=== PATIENT | female | born 1955 | race Caucasian/White ===

== ENCOUNTER 2018-03-28 14:19 | Emergency (ER) | payer MEDICARE, MEDICAID ==
--- NOTE | 2018-03-28 14:46 | ED ---
HPI Cardiac - HPI Summary HPI Summary: This patient is a 65 year old F sent by ambulance from [facility] with a chief complaint of elevated HR since just OUTSIDE RIGGER. Patient reports chills. The patient states that her doctor was supposed to increase her dosage of thyroid medication and she is concerned about that. Vitals in the room: HR 115 bpm, BP 150/82. - History of Current Complaint Chief Complaint: EDGeneral Stated Complaint: GENERAL ILLNESS Time Seen by Provider: 03/28/18 14:29 Hx Obtained From: Patient, Other: - [facility] Pain Intensity: 0 Associated Signs and Symptoms: Positive: Chills - Allergy/Home Medications Allergies/Adverse Reactions: Allergies Allergy/AdvReac Type Severity Reaction Status Date / Time insect venom Allergy Anaphylatic Verified 03/28/18 14:28 Shock Home Medications: Home Medications EPINEPHrine [Epinephrine] 0.3 mg IM DAILY PRN 03/28/18 [History Confirmed ] PMH/Surg Hx/FS Hx/Imm Hx History: Denies: Hx Dialysis Sensory History: Denies: Hx Deafness Psychiatric History: Denies: Hx Eating Disorder, Hx of Violent Episodes Against Others Infectious Disease History: No Infectious Disease History: Denies: Traveled Outside the US in Last 30 Days - Family History Known Family History: Positive: Other - thyroid - Social History Alcohol Use: None Substance Use Type: Reports: None Smoking Status (MU): Never Smoked Tobacco Review of Systems Positive: Chills Positive: Other - increased HR All Other Systems Reviewed And Are Negative: Yes Physical Exam - Summary Physical Exam Summary: Appearance: The patient is well-nourished in no acute distress and in no acute pain. Skin: The skin is warm and dry and skin color reflects adequate perfusion. HEENT: The head is normocephalic and atraumatic. The pupils are equal and reactive. The conjunctivae are clear and without drainage. Nares are patent and without drainage. Mouth reveals moist mucous membranes and the throat is without erythema and exudate. The external ears are intact. The ear canals are patent and without drainage. The tympanic membranes are intact. Neck: The neck is supple with full range of motion and non-tender. There are no carotid bruits. There is no neck vein distension. Respiratory: Chest is non-tender. Lungs are clear to auscultation and breath sounds are symmetrical and equal. Cardiovascular: Heart is regular rate and rhythm. There is no murmur or rub auscultated. There is no peripheral edema and pulses are symmetrical and equal. Abdomen: The abdomen is soft and non-tender. There are normal bowel sounds heard in all four quadrants and there is no organomegaly palpated. Musculoskeletal: There is no back tenderness noted. Extremities are non-tender with full range of motion. There is good capillary refill. There is no peripheral edema or calf tenderness elicited. There is hyperreflexia diffusely. Neurological: Patient is alert and oriented to person, place and time. The patient has symmetrical motor strength in all four extremities. Cranial nerves are grossly intact. Deep tendon reflexes are symmetrical and equal in all four extremities. Psychiatric: The patient has an appropriate affect and does not exhibit any anxiety or depression. Triage Information Reviewed: Yes Vital Signs On Initial Exam: Initial Vitals Temp Pulse Resp BP Pulse Ox 98 F 115 18 150/82 93 03/28/18 14:25 03/28/18 14:25 03/28/18 14:25 03/28/18 14:25 03/28/18 14:25 Vital Signs Reviewed: Yes Diagnostics - Vital Signs Vital Signs Temp Pulse Resp BP Pulse Ox 03/28/18 14:25 98 F 115 18 150/82 93 - Laboratory Result Diagrams: 03/28/18 14:55 03/28/18 14:55 Lab Statement: Any lab studies that have been ordered have been reviewed, and results considered in the medical decision making process. Disposition - Course Course Of Treatment: Ms. Miranda presented to the emergency department from the [facility]. She went there for a routine visit and was found to be tachycardic. She is on thyroid medication and they were concerned. She is asymptomatic. She is nontoxic and arrival with normal vital signs aside from mild tachycardia. The tachycardia is treated with IV fluids while labs are obtained including a TSH and a d-dimer. These tests are all within normal limits and her tachycardia improved with fluids. I don't think anything dangerous is happening and I recommended she follow up with her PCP. - Diagnoses Provider Diagnoses: Dehydration Discharge - Sign-Out/Discharge Documenting (check all that apply): Patient Departure - discharge - Discharge Plan Condition: Stable Disposition: HOME Patient Education Materials: Dehydration (ED) Referrals: Hayley Pierce MD [Primary Care Provider] - 3 Days Additional Instructions: Follow up with Dr. Pierce in 2-3 days. RETURN TO THE EMERGENCY DEPARTMENT WITH NEW OR WORSENING SYMPTOMS. - Billing Disposition and Condition Condition: STABLE Disposition: Home - Attestation Statements Document Initiated by Toy: Yes Documenting Scribe: Sony Shukla Provider For Whom Lolie is Documenting (Include Credential): Edy Chavarria Scribe Attestation: ISony, scribed for Edy Chavarria on 03/28/18 at 1825. Scribe Documentation Reviewed: Yes Provider Attestation: The documentation as recorded by the Sony márquez accurately reflects the service I personally performed and the decisions made by Edy wan Status of Scribe Document: Viewed
[2018-03-28 15:05] LABS: ABS Basophils 0 10^3/ul (0-0.2); ABS Eosinophils 0 10^3/ul (0-0.6); ABS Lymphocytes 0.9 10^3/ul (1.0-4.8); ABS Monocytes 0.4 10^3/ul (0-0.8); ABS Neutrophils 4.9 10^3/ul (1.5-7.7); ABS Nucleated RBC 0 10^3/ul; Eosinophil % 0.1 %; Hematocrit 42 % (35-47); Hemoglobin 14.1 g/dl (12.0-16.0); Lymphocyte % 14.8 %; Mean Corpuscular HGB Conc 34 g/dl (31-36); Mean Corpuscular Hemoglobin 29 pg (27-31); Mean Corpuscular Volume 85 fL (80-97); Mean Platelet Volume 8.7 fL (7.4-10.4); Nucleated Red Blood Cells % 0; Platelet Count 214 10^3/ul (150-450); Red Blood Count 4.89 10^6/ul (4.00-5.40); Red Cell Distribution Width 15 % (10.5-15); White Blood Count 6.2 10^3/ul (3.5-10.8)
[2018-03-28 15:24] LABS: Albumin 3.7 g/dL (3.2-5.2); Albumin/Globulin Ratio 1.2 (1-3); BUN/Creatinine Ratio 24.3 (8-20); C Reactive Protein 6.36 mg/L (<8.01); Calcium 9.7 mg/dL (8.6-10.3); EGFR African American 96.2 (>60); EGFR Non-African American 79.5 (>60); Globulin 3.1 g/dL (2-4); Potassium 3.2 mmol/L (3.5-5.0); Total Bilirubin 0.5 mg/dL (0.2-1.0); Total Protein 6.8 g/dL (6.4-8.9)
[2018-03-28 16:05] LABS: TSH (Thyroid Stimulating Horm) 1.5 mcIU/mL (0.34-5.60)
[2018-03-28] MEDS ORDERED: NS 0.9% 1000 ML** 1,000 ML IV ONE (16:30)
[2018-03-28 17:37] VITALS: BP 144/81
== END 2018-03-28 18:02 | disposition home or self-care (01) ==
LOC: ED 14:19
DX: E86.0 Dehydration (principal); R00.0 Tachycardia, unspecified
CPT/HCPCS: 36415; 80053; 84443; 84484; 85025; 85379; 86140; 96360; 99283

== ENCOUNTER 2018-04-09 10:24 | Emergency (ER) | payer MEDICARE, MEDICAID ==
[2018-04-09] MEDS ORDERED: Nicotine Inhaler* 10 MG AMP INH PRN (10:40)
[2018-04-09 11:09] LABS: ABS Basophils 0.1 10^3/ul (0-0.2); ABS Eosinophils 0 10^3/ul (0-0.6); ABS Monocytes 0.5 10^3/ul (0-0.8); ABS Neutrophils 4.6 10^3/ul (1.5-7.7); ABS Nucleated RBC 0 10^3/ul; Eosinophil % 0.6 %; Hematocrit 46 % (35-47); Hemoglobin 15.3 g/dl (12.0-16.0); Lymphocyte % 16.6 %; Mean Corpuscular HGB Conc 33 g/dl (31-36); Mean Corpuscular Hemoglobin 29 pg (27-31); Mean Corpuscular Volume 87 fL (80-97); Mean Platelet Volume 8.9 fL (7.4-10.4); Nucleated Red Blood Cells % 0.1; Platelet Count 210 10^3/ul (150-450); Red Cell Distribution Width 15 % (10.5-15); White Blood Count 6.3 10^3/ul (3.5-10.8)
[2018-04-09 11:11] LABS: Urine Appearance Cloudy; Urine Bacteria Absent (Absent); Urine Bilirubin Negative (Negative); Urine Blood Negative (Negative); Urine Color Amber; Urine Glucose Negative (Negative); Urine Ketones 1+ (Negative); Urine Nitrite Negative (Negative); Urine Protein Negative (Negative); Urine Red Blood Cell Absent (Absent); Urine Specific Gravity 1.027 (1.010-1.030); Urine Squamous Epithelial Cell Present (Absent); Urine Urobilinogen Negative (Negative); Urine White Blood Cell 3+(>20/hpf) (Absent)
--- NOTE | 2018-04-09 11:25 | ED ---
Psychiatric Complaint - HPI Summary HPI Summary: A 62 y/o female presents to [facility] with a chief complaint of being brought in for a 945 the morning of 04/09/18. Per triage note, "brother is hounding her, [facility] sent pt: pt having nightmares "bad ones" wont elaborate". She claims that she has been having nightmares and wakes up being "frozen". She denies having nightmares during the day. She also claims that she gets angry when her brother and telemarketers call but she denies HI. She claims that they "get all on my case" and that "there is a boundary that they keep crossing". She claims that her only comfort is her cat and she is starting not to like the [place] weather and her "cat knows that something is not right" with her , but she denies SI. She also reports that she has genital herpes but is not taking any medicine for it. She denies fever, chills, erythema (eyes), sore throat, chest pain, shortness of breath, cough, abdominal pain, vomiting, nausea, dysuria, hematuria, myalgia , edema, rash and dizziness. Her therapist, Yaquelin, recommended that she come to the ED. At triage she rated her pain as a 0/10. - History Of Current Complaint Chief Complaint: EDMentalHealth Time Seen by Provider: 04/09/18 10:39 Hx Obtained From: Patient, EMS Onset/Duration: Sudden Onset, Lasting Hours, Lasting Days, Still Present Timing: Constant Severity Initially: Mild Severity Currently: Mild Character: Angry Aggravating Factor(s): Nothing Alleviating Factor(s): Nothing Associated Signs And Symptoms: Positive: Sleep Disturbance Has Suicidal: Denies: Thoughts Has Homicidal: Denies: Thoughts - Allergies/Home Medications Allergies/Adverse Reactions: Allergies Allergy/AdvReac Type Severity Reaction Status Date / Time insect venom Allergy Anaphylatic Verified 03/28/18 14:28 Shock Home Medications: Home Medications Dimas/D3/Mag11/Zinc/Child Daycare Worker/Krishna/Bor [Caltrate 600+D Plus] 1 tab PO DAILY 04/09/18 [ History Confirmed 04/09/18] Levothyroxine TAB* [Synthroid TAB*] 50 mcg PO QAM 04/09/18 [History Confirmed ] Magnesium Oxide TAB* [MagOx 400 TAB*] 400 mg PO DAILY 04/09/18 [History Confirmed 04/09/18] Multivitamins/Minerals TAB* [Theragran/minerals TAB*] 1 tab PO DAILY 04/09/18 [ History Confirmed 04/09/18] Potassium Chlor TAB* [Klor Con ER TAB*] 20 meq PO DAILY 04/09/18 [History Confirmed 04/09/18] QUEtiapine XR TAB* [Seroquel Xr 50 MG TAB*] 150 mg PO BEDTIME 04/09/18 [History Confirmed 04/09/18] PMH/Surg Hx/FS Hx/Imm Hx History: Denies: Hx Dialysis Sensory History: Denies: Hx Deafness Psychiatric History: Denies: Hx Eating Disorder, Hx of Violent Episodes Against Others Infectious Disease History: No Infectious Disease History: Denies: Traveled Outside the US in Last 30 Days - Family History Known Family History: Positive: Other - thyroid - Social History Alcohol Use: None Substance Use Type: Reports: None Smoking Status (MU): Never Smoked Tobacco Review of Systems Negative: Fever, Chills Negative: Erythema Negative: Sore Throat Negative: Chest Pain Negative: Shortness Of Breath, Cough Negative: Abdominal Pain, Vomiting, Nausea Negative: dysuria, hematuria Negative: Myalgia, Edema Negative: Rash Neurological: Negative - dizziness Psychological: Other - Negative: HI, SI Positive: Other - positive: angry, nightmares All Other Systems Reviewed And Are Negative: Yes Physical Exam - Summary Physical Exam Summary: Constitutional: Poorly kempt, malodorous. Well-developed, Well-nourished, Alert. (-) Distressed Skin: Warm, Dry HENT: Normocephalic; Atraumatic Eyes: Conjunctiva normal Neck: Musculoskeletal ROM normal neck. (-) JVD, (-) Stridor, (-) Tracheal deviation Cardio: Rhythm regular, rate normal, Heart sounds normal; Intact distal pulses; The pedal pulses are 2+ and symmetric. Radial pulses are 2+ and symmetric. (-) Murmur Pulmonary/Chest wall: Effort normal. (-) Respiratory distress, (-) Wheezes, (-) Rales Abd: Soft, (-) epigastric tenderness, (-) Distension, (-) Guarding, (-) Rebound Musculoskeletal: (-) Edema Lymph: (-) Cervical adenopathy Neuro: Alert, Oriented x3 Psych: Mood and affect Normal Triage Information Reviewed: Yes Vital Signs On Initial Exam: Initial Vitals Temp Pulse Resp BP Pulse Ox 97.6 F 103 16 129/83 93 04/09/18 10:33 04/09/18 10:33 04/09/18 10:33 04/09/18 10:33 04/09/18 10:33 Vital Signs Reviewed: Yes Diagnostics - Vital Signs Vital Signs Temp Pulse Resp BP Pulse Ox 04/09/18 10:33 97.6 F 103 16 129/83 93 - Laboratory Lab Results: Lab Results 04/09/18 04/09/18 Range/Units 10:48 10:49 WBC 6.3 (3.5-10.8) 10^3/ul RBC 5.30 (4.00-5.40) 10^6/ul Hgb 15.3 (12.0-16.0) g/dl Hct 46 (35-47) % MCV 87 (80-97) fL MCH 29 (27-31) pg MCHC 33 (31-36) g/dl RDW 15 (10.5-15) % Plt Count 210 (150-450) 10^3/ul MPV 8.9 (7.4-10.4) fL Neut % (Auto) 73.1 % Lymph % (Auto) 16.6 % Johnson % (Auto) 8.4 % Eos % (Auto) 0.6 % Baso % (Auto) 1.3 % Absolute Neuts (auto) 4.6 (1.5-7.7) 10^3/ul Absolute Lymphs (auto) 1.0 (1.0-4.8) 10^3/ul Absolute Monos (auto) 0.5 (0-0.8) 10^3/ul Absolute Eos (auto) 0 (0-0.6) 10^3/ul Absolute Basos (auto) 0.1 (0-0.2) 10^3/ul Absolute Nucleated RBC 0 10^3/ul Nucleated RBC % 0.1 Urine Color Precious Urine Appearance Cloudy Urine pH 5.0 (5-9) Ur Specific [place] 1.027 (1.010-1.030) Urine Protein Negative (Negative) Urine Ketones 1+ A (Negative) Urine Blood Negative (Negative) Urine Nitrate Negative (Negative) Urine Bilirubin Negative (Negative) Urine Urobilinogen Negative (Negative) Ur Leukocyte Esterase 3+ A (Negative) Urine WBC (Auto) 3+(>20/hpf) A (Absent) Urine RBC (Auto) Absent (Absent) Ur Squamous Epith Cells Present A (Absent) Urine Bacteria Absent (Absent) Urine Glucose Negative (Negative) Urine Ascorbic Acid * A (Negative) Result Diagrams: 04/09/18 10:48 04/09/18 10:51 Lab Statement: Any lab studies that have been ordered have been reviewed, and results considered in the medical decision making process. - EKG 10:53 Cardiac Rate: Tachycardia - 100 bpm EKG Rhythm: Sinus Tachycardia Summary of EKG Findings: Sinus tachycardia at 100 bpm. No STEMI. Re-Evaluation - Re-Evaluation First Eval Re-Evaluation Time: 12:48 Change: Unchanged Comment: cleared for MHE. Course/Dx - Course Course Of Treatment: A 62 y/o female presents to [facility] with a chief complaint of being brought in for a 945 the morning of 04/09/18. She reports having nightmares and being angry with her brother and telemarketers. The physical exam revealed that the patient is poorly kempt and malodorous. She reports a personal Hx of genital herpes and is having a flare up. In the ED course she was given Nicotine INH, Bactrim PO and Valtrex PO. Lab results obtained. Urine ketones 1+, UR leukocyte Esterase 3+, Urine WBC 3+, Ur squamos epith cells present and U Benzodiazepines presumptive positive. Her EKG revealed sinus tachycardia at 100 bpm. After her MHE, she will be discharged with a prescription for Valtrex. She was instructed to follow up with [facility]. The patient is agreeable with this plan. - Differential Dx/Clinical Impression Provider Diagnosis: Depression, Genital herpes Discharge - Sign-Out/Discharge Documenting (check all that apply): Patient Departure - DC - Discharge Plan Condition: Stable Disposition: HOME Prescriptions: ValACYclovir (*) [Valtrex 1 GM(*)] 1 gm PO BID #28 tab Referrals: [facility] [Outside] - 04/14/18 1:30 pm (Follow up appointment with counselor, Holly.) Hayley Pierce MD [Primary Care Provider] - Additional Instructions: Follow up with [facility]. RETURN TO THE EMERGENCY DEPARTMENT FOR CHANGING OR WORSENING SYMPTOMS - Billing Disposition and Condition Condition: STABLE Disposition: Home - Attestation Statements Document Initiated by Adaibe: Yes Documenting Scribe: Zak Doyle Provider For Whom Toy is Documenting (Include Credential): Ian Sneed MD Scribe Attestation: IZak, scribed for Ian Sneed MD on 04/09/18 at 2047. Scribe Documentation Reviewed: Yes Provider Attestation: The documentation as recorded by the Zak márquez accurately reflects the service I personally performed and the decisions made by me, Ian Sneed MD Status of Scribe Document: Viewed
[2018-04-09 11:26] LABS: Barbiturates Urine Screen None Detected (None Detect); Benzodiazepine Urine Screen Presumptive Positive (None Detect); Urine Cannabinoids Screen None Detected (None Detect)
[2018-04-09 11:28] LABS: ALT 16 U/L (7-52); AST 26 U/L (13-39); Albumin 4.1 g/dL (3.2-5.2); Albumin/Globulin Ratio 1.2 (1-3); Alkaline Phosphatase 59 U/L (34-104); Anion Gap 11 mmol/L (2-11); BUN/Creatinine Ratio 29.6 (8-20); Blood Urea Nitrogen 21 mg/dL (6-24); CO2 Carbon Dioxide 24 mmol/L (22-32); Calcium 9.8 mg/dL (8.6-10.3); Chloride 103 mmol/L (101-111); EGFR African American 100.9 (>60); EGFR Non-African American 83.4 (>60); Globulin 3.4 g/dL (2-4); Glucose 101 mg/dL (70-100); Sodium 138 mmol/L (135-145); Total Protein 7.5 g/dL (6.4-8.9)
[2018-04-09 11:42] LABS: Acetaminophen < 15 mcg/mL; Alcohol < 10 mg/dL (<10); Salicylate < 2.50 mg/dL (<30)
[2018-04-09 11:55] LABS: TSH (Thyroid Stimulating Horm) 2.85 mcIU/mL (0.34-5.60)
[2018-04-09] MEDS ORDERED: Sulfamethox/Trimethoprim DS 800/160* TAB PO ONE (12:47)
[2018-04-09] MEDS ORDERED: ValACYclovir (*) 1 GM TAB PO ONE (14:06)
[2018-04-09 15:42] VITALS: BP 114/76
== END 2018-04-09 15:41 | disposition home or self-care (01) ==
LOC: ED 10:24
DX: F32.9 Major depressive disorder, single episode, unspecified (principal); A60.00 Herpesviral infection of urogenital system, unspecified; R00.0 Tachycardia, unspecified
CPT/HCPCS: 36415; 80053; 80307; 80320; 80329; 81003; 81015; 84443; 85025; 86703; 87077; 87086; 87186; 93005; 99284; A9270-GY; G0480

== ENCOUNTER 2018-07-14 20:35 | Emergency (ER) | payer MEDICARE, MEDICAID ==
[2018-07-14 21:25] LABS: Urine Appearance Cloudy; Urine Bacteria Absent (Absent); Urine Bilirubin Negative (Negative); Urine Blood Negative (Negative); Urine Color Amber; Urine Glucose Negative (Negative); Urine Ketones 2+ (Negative); Urine Nitrite Negative (Negative); Urine Protein 2+(100 mg/dL) (Negative); Urine Red Blood Cell 2+(6-10/hpf) (Absent); Urine Specific Gravity 1.029 (1.010-1.030); Urine Squamous Epithelial Cell Present (Absent); Urine Urobilinogen Negative (Negative); Urine White Blood Cell 3+(>20/hpf) (Absent)
[2018-07-14 21:35] LABS: ABS Basophils 0.1 10^3/ul (0-0.2); ABS Eosinophils 0 10^3/ul (0-0.6); ABS Lymphocytes 1.3 10^3/ul (1.0-4.8); ABS Monocytes 0.6 10^3/ul (0-0.8); ABS Neutrophils 4.7 10^3/ul (1.5-7.7); ABS Nucleated RBC 0 10^3/ul; Eosinophil % 0.3 %; Hematocrit 43 % (33-41); Hemoglobin 14.5 g/dL (12.0-16.0); Lymphocyte % 19.3 %; Mean Corpuscular HGB Conc 33 g/dL (31-36); Mean Corpuscular Hemoglobin 31 pg (27-31); Mean Corpuscular Volume 92 fL (80-97); Nucleated Red Blood Cells % 0; Platelet Count 223 10^3/uL (150-450); Red Cell Distribution Width 17 % (10.5-15); White Blood Count 6.8 10^3/uL (3.5-10.8)
[2018-07-14 21:38] LABS: Urine Benzodiazepine Screen Presumptive Positive (None Detect); Urine Opiates Screen None Detected (None Detect)
[2018-07-14 21:53] LABS: ALT 17 U/L (7-52); AST 25 U/L (13-39); Albumin 4.2 g/dL (3.2-5.2); Albumin/Globulin Ratio 1.4 (1-3); Alkaline Phosphatase 51 U/L (34-104); Anion Gap 10 mmol/L (2-11); Blood Urea Nitrogen 20 mg/dL (6-24); CO2 Carbon Dioxide 26 mmol/L (22-32); Calcium 9.4 mg/dL (8.6-10.3); Chloride 104 mmol/L (101-111); EGFR African American 67.8 (>60); Globulin 2.9 g/dL (2-4); Glucose 140 mg/dL (70-100); Potassium 3.3 mmol/L (3.5-5.0); Sodium 140 mmol/L (135-145); Total Protein 7.1 g/dL (6.4-8.9)
[2018-07-14 22:10] LABS: Acetaminophen < 15 mcg/mL; Alcohol < 10 mg/dL (<10); Salicylate < 2.50 mg/dL (<30)
[2018-07-14] MEDS ORDERED: hydrOXYzine HCL TAB* 25 MG PO ONE (22:12)
[2018-07-14 22:25] LABS: TSH (Thyroid Stimulating Horm) 1.65 mcIU/mL (0.34-5.60)
[2018-07-14] MEDS ORDERED: Potassium Chlor TAB* 20 MEQ TAB.ER PO ONE (23:19)
--- NOTE | 2018-07-14 23:19 | ED ---
Medical Screening - HPI Summary HPI Summary: Patient brought 941 by [employer]. Patient states she lives alone in her apartment for the past 6 years and has been having persistent nightmares about living alone, feels overwhelmed and just can't live there anymore. Patient due to move to [facility] tomorrow but could not wait until tomorrow. Denies SI , HI. Patient states she does hear voices saying that someone is out to get her. Patient has history of bipolar, hypothyroid. Patient is compliant with medication. Denies EtOH or recreational drug use. - History of Current Complaint Chief Complaint: EDMentalHealth Stated Complaint: 941, MHE PER POLICE Time Seen by Provider: 07/14/18 21:12 Severity: moderate PMH/Surg Hx/FS Hx/Imm Hx Endocrine/Hematology History: Denies: Hx Anticoagulant Therapy Cardiovascular History: Denies: Hx Pacemaker/ICD History: Denies: Hx Dialysis Sensory History: Denies: Hx Deafness Opthamlomology History: Denies: Hx Legally Blind EENT History: Denies: Hx Deafness Neurological History: Denies: Hx Dementia Psychiatric History: Denies: Hx Eating Disorder, Hx of Violent Episodes Against Others - Immunization History Date of Tetanus Vaccine: unk Date of Influenza Vaccine: fall 2017 Infectious Disease History: No Infectious Disease History: Denies: Traveled Outside the [place] in Last 30 Days - Family History Known Family History: Positive: Other - thyroid - Social History Alcohol Use: None Substance Use Type: Reports: None Substance Use Comment - Amount & Last Used: prescribed medications per pt Smoking Status (MU): Never Smoked Tobacco Review of Systems Constitutional: Negative Eyes: Negative ENT: Negative Cardiovascular: Negative Respiratory: Negative Gastrointestinal: Negative Genitourinary: Negative Musculoskeletal: Negative Skin: Negative Neurological: Negative Positive: Anxious All Other Systems Reviewed And Are Negative: Yes Physical Exam Triage Information Reviewed: Yes Vital Signs On Initial Exam: Initial Vitals Temp Pulse Resp BP Pulse Ox 97.1 F 137 16 128/86 94 07/14/18 20:40 07/14/18 20:40 07/14/18 20:40 07/14/18 20:40 07/14/18 20:40 Vital Signs Reviewed: Yes Appearance: Positive: Well-Appearing Skin: Positive: Warm Head/Face: Positive: Normal Head/Face Inspection Eyes: Positive: Normal ENT: Positive: Normal ENT inspection Neck: Positive: Supple Respiratory/Lung Sounds: Positive: Clear to Auscultation Cardiovascular: Positive: Normal Abdomen Description: Positive: Nontender Musculoskeletal: Positive: Normal Neurological: Positive: Normal Psychiatric: Positive: Normal AVPU Assessment: Alert - Rosa Elena Coma Scale Best Eye Response: 4 - Spontaneous Best Motor Response: 6 - Obeys Commands Best Verbal Response: 5 - Oriented Coma Scale Total: 15 Diagnostics - Vital Signs Vital Signs Temp Pulse Resp BP Pulse Ox 07/14/18 20:40 97.1 F 137 16 128/86 94 - Laboratory Lab Results: Lab Results 07/14/18 07/14/18 07/14/18 Range/Units 21:12 21:12 21:29 WBC 6.8 (3.5-10.8) 10^3/uL RBC 4.70 (3.70-4.87) 10^6 /uL Hgb 14.5 (12.0-16.0) g/dL Hct 43 H (33-41) % MCV 92 (80-97) fL MCH 31 (27-31) pg MCHC 33 (31-36) g/dL RDW 17 H (10.5-15) % Plt Count 223 (150-450) 10^3/uL MPV 9.0 (7.4-10.4) fL Neut % (Auto) 69.8 % Lymph % (Auto) 19.3 % [place] % (Auto) 9.6 % Eos % (Auto) 0.3 % Baso % (Auto) 1.0 % Absolute Neuts (auto) 4.7 (1.5-7.7) 10^3/ul Absolute Lymphs (auto) 1.3 (1.0-4.8) 10^3/ul Absolute Monos (auto) 0.6 (0-0.8) 10^3/ul Absolute Eos (auto) 0 (0-0.6) 10^3/ul Absolute Basos (auto) 0.1 (0-0.2) 10^3/ul Absolute Nucleated RBC 0 10^3/ul Nucleated RBC % 0 Sodium (135-145) mmol/L Potassium (3.5-5.0) mmol/L Chloride (101-111) mmol/L Carbon Dioxide (22-32) mmol/L Anion Gap (2-11) mmol/L BUN (6-24) mg/dL Creatinine (0.51-0.95) mg/dL Est GFR ( Amer) (>60) Est GFR (Non-Af Amer) (>60) BUN/Creatinine Ratio (8-20) Glucose (70-100) mg/dL Calcium (8.6-10.3) mg/dL Total Bilirubin (0.2-1.0) mg/dL AST (13-39) U/L ALT (7-52) U/L Alkaline Phosphatase (34-104) U/L Total Protein (6.4-8.9) g/dL Albumin (3.2-5.2) g/dL Globulin (2-4) g/dL Albumin/Globulin Ratio (1-3) TSH (0.34-5.60) mcIU/mL Urine Color Precious Urine Appearance Cloudy Urine pH 5.0 (5-9) Ur Specific [place] 1.029 (1.010-1.030) Urine Protein 2+(100 mg/dl) A (Negative) Urine Ketones 2+ A (Negative) Urine Blood Negative (Negative) Urine Nitrate Negative (Negative) Urine Bilirubin Negative (Negative) Urine Urobilinogen Negative (Negative) Ur Leukocyte Esterase 3+ A (Negative) Urine WBC (Auto) 3+(>20/hpf) A (Absent) Urine RBC (Auto) 2+(6-10/hpf) A (Absent) Ur Squamous Epith Cells Present A (Absent) Calcium Oxalate Crystal Present A (Absent) Urine Bacteria Absent (Absent) Hyaline Casts Present A (Absent) Urine Glucose Negative (Negative) Urine Ascorbic Acid * A (Negative) Salicylates (<30) mg/dL Urine Opiates Screen None detected (None Detect) Acetaminophen mcg/mL Ur Barbiturates Screen None detected (None Detect) Ur Phencyclidine Scrn None detected (None Detect) Ur Amphetamines Screen None detected (None Detect) U Benzodiazepines Scrn Presumptive positive A (None Detect) Urine Cocaine Screen None detected (None Detect) U Cannabinoids Screen None detected (None Detect) Serum Alcohol (<10) mg/dL 07/14/18 Range/Units 21:29 WBC (3.5-10.8) 10^3/uL RBC (3.70-4.87) 10^6 /uL Hgb (12.0-16.0) g/dL Hct (33-41) % MCV (80-97) fL MCH (27-31) pg MCHC (31-36) g/dL RDW (10.5-15) % Plt Count (150-450) 10^3/uL MPV (7.4-10.4) fL Neut % (Auto) % Lymph % (Auto) % [place] % (Auto) % Eos % (Auto) % Baso % (Auto) % Absolute Neuts (auto) (1.5-7.7) 10^3/ul Absolute Lymphs (auto) (1.0-4.8) 10^3/ul Absolute Monos (auto) (0-0.8) 10^3/ul Absolute Eos (auto) (0-0.6) 10^3/ul Absolute Basos (auto) (0-0.2) 10^3/ul Absolute Nucleated RBC 10^3/ul Nucleated RBC % Sodium 140 (135-145) mmol/L Potassium 3.3 L (3.5-5.0) mmol/L Chloride 104 (101-111) mmol/L Carbon Dioxide 26 (22-32) mmol/L Anion Gap 10 (2-11) mmol/L BUN 20 (6-24) mg/dL Creatinine 1.00 H (0.51-0.95) mg/dL Est GFR ( Amer) 67.8 (>60) Est GFR (Non-Af Amer) 56.0 (>60) BUN/Creatinine Ratio 20.0 (8-20) Glucose 140 H (70-100) mg/dL Calcium 9.4 (8.6-10.3) mg/dL Total Bilirubin 0.40 (0.2-1.0) mg/dL AST 25 (13-39) U/L ALT 17 (7-52) U/L Alkaline Phosphatase 51 (34-104) U/L Total Protein 7.1 (6.4-8.9) g/dL Albumin 4.2 (3.2-5.2) g/dL Globulin 2.9 (2-4) g/dL Albumin/Globulin Ratio 1.4 (1-3) TSH 1.65 (0.34-5.60) mcIU/mL Urine Color Urine Appearance Urine pH (5-9) Ur Specific [place] (1.010-1.030) Urine Protein (Negative) Urine Ketones (Negative) Urine Blood (Negative) Urine Nitrate (Negative) Urine Bilirubin (Negative) Urine Urobilinogen (Negative) Ur Leukocyte Esterase (Negative) Urine WBC (Auto) (Absent) Urine RBC (Auto) (Absent) Ur Squamous Epith Cells (Absent) Calcium Oxalate Crystal (Absent) Urine Bacteria (Absent) Hyaline Casts (Absent) Urine Glucose (Negative) Urine Ascorbic Acid (Negative) Salicylates < 2.50 (<30) mg/dL Urine Opiates Screen (None Detect) Acetaminophen < 15 mcg/mL Ur Barbiturates Screen (None Detect) Ur Phencyclidine Scrn (None Detect) Ur Amphetamines Screen (None Detect) U Benzodiazepines Scrn (None Detect) Urine Cocaine Screen (None Detect) U Cannabinoids Screen (None Detect) Serum Alcohol < 10 (<10) mg/dL Result Diagrams: 07/14/18 21:29 07/14/18 21:29 Lab Statement: Any lab studies that have been ordered have been reviewed, and results considered in the medical decision making process. Course/Dx - Course Course Of Treatment: Patient brought 941 by [employer]. Patient states she lives alone in her apartment for the past 6 years and has been having persistent nightmares about living alone, feels overwhelmed and just can't live there anymore. Patient due to move to [facility] tomorrow but could not wait until tomorrow. Denies SI, HI. Patient states she does hear voices saying that someone is out to get her. Patient has history of bipolar, hypothyroid. Patient is compliant with medication. Denies EtOH or recreational drug use. Physical exam unremarkable. Patient alert and oriented, answers questions calmly and clearly. Patient tachycardic, Vital signs otherwise within normal limits. Potassium 3.3, given potassium chloride 40 MEQ PO. Possible UTI, cultures pending. Pending mental health evaluation. Patient signed out to Dr. Brady. - Diagnoses Provider Diagnoses: Depression Discharge - Sign-Out/Discharge Documenting (check all that apply): Patient Departure, Sign-Out Patient Signing out patient TO: Edy Brady Patient Received Moderate/Deep Sedation with Procedure: No - Discharge Plan Condition: Stable Disposition: HOME Patient Education Materials: Depression (ED) Referrals: Hayley Pierce MD [Primary Care Provider] - - Billing Disposition and Condition Condition: STABLE Disposition: Home
--- NOTE | 2018-07-15 04:54 | ED ---
Progress - Progress Note Progress Note: The patient is a 63 year old female who was signed out by the AVINASH Wei and received by Dr. Brady. She is pending MHE and disposition. - Consult/PCP Time Called: 23:01 Course/Dx - Course Course Of Treatment: The patient is pending mental health evaluation and was signed out to Dr. Brady. Upon the completion of the MHE, as per Dr. Salcedo, the patient will be dx with unspecified depression. We are agreeable to the discharge of the patient. - Diagnoses Provider Diagnoses: Depression Discharge - Sign-Out/Discharge Documenting (check all that apply): Patient Departure - Discharge Home, Receiving Sign-Out Receiving patient FROM: Heladio Wei Patient Received Moderate/Deep Sedation with Procedure: No - Discharge Plan Condition: Stable Disposition: HOME Patient Education Materials: Depression (ED) Referrals: Hayley Pierce MD [Primary Care Provider] - - Attestation Statements Document Initiated by Scribe: Yes Documenting Scribe: Marcel Barraza Provider For Whom Scribe is Documenting (Include Credential): Dr. Edy Brady Scribe Attestation: Marcel Mayberry, scribed for Dr. Edy Brady on 07/15/18 at 0512. Status of Scribe Document: Ready
[2018-07-15 05:05] VITALS: BP 0/0
== END 2018-07-15 04:30 | disposition home or self-care (01) ==
LOC: ED 20:35
DX: F32.9 Major depressive disorder, single episode, unspecified (principal); Z60.2 Problems related to living alone
CPT/HCPCS: 36415; 80053; 80307; 80320; 80329; 81003; 81015; 84443; 85025; 87086; 99284; G0480

== ENCOUNTER 2020-06-30 08:54 | Observation (INO) ==
[2020-06-30] MEDS ORDERED: NS 0.9% 1000 ml BAG 1,000 ML IV ONE ×4 (09:09→11:50)
[2020-06-30 09:25] LABS: ABS Basophils 0.1 10^3/ul (0-0.2); ABS Eosinophils 0.1 10^3/ul (0-0.6); ABS Lymphocytes 1.8 10^3/ul (1.0-4.8); ABS Monocytes 0.8 10^3/ul (0-0.8); ABS Neutrophils 6.9 10^3/ul (1.5-7.7); Eosinophil % 0.6 %; Hematocrit 43 % (35-47); Hemoglobin 14.7 g/dL (12.0-16.0); Lymphocyte % 18.9 %; Mean Corpuscular HGB Conc 34 g/dL (31-36); Mean Corpuscular Hemoglobin 29 pg (27-31); Mean Corpuscular Volume 86 fL (80-97); Mean Platelet Volume 8.3 fL (7.4-10.4); Platelet Count 293 10^3/uL (150-450); Red Blood Count 5.01 10^6 /uL (3.70-4.87); Red Cell Distribution Width 16 % (10-15); White Blood Count 9.6 10^3/uL (3.5-10.8)
[2020-06-30 09:42] LABS: Troponin I 0.01 ng/mL (<0.03)
[2020-06-30 09:44] LABS: Albumin 4.1 g/dL (3.2-5.2); Albumin/Globulin Ratio 1.3 (1-3); BUN/Creatinine Ratio 20.3 (8-20); C Reactive Protein 6.74 mg/L (<8.01); Calcium 9.4 mg/dL (8.6-10.3); EGFR African American 103.3 (>60); EGFR Non-African American 85.4 (>60); Globulin 3.1 g/dL (2-4); Potassium 3.2 mmol/L (3.5-5.0); Total Bilirubin 0.5 mg/dL (0.2-1.0); Total Protein 7.2 g/dL (6.4-8.9)
[2020-06-30 09:53] LABS: Activated Partial Thrombo Time 32.5 seconds (26.0-38.0); INR 1.12 (0.82-1.09)
[2020-06-30] MEDS ORDERED: Potassium Chlor 20 meq TAB.ER PO ONE (09:58)
[2020-06-30] MEDS ORDERED: Ondansetron 4 mg VIAL 2 MG/ML 2 ml VIAL IV ONE ×2 (10:02→11:55)
[2020-06-30] MEDS ORDERED: Morphine 4 MG/ML VIAL (1 ml) IV ONE (10:06)
[2020-06-30] MEDS ORDERED: Iodixanol (CONTRAST) 320 MG/ML 100 ML SDV IV ONE (10:40)
[2020-06-30 12:23] LABS: Urine Appearance Clear; Urine Bilirubin Negative (Negative); Urine Blood Negative (Negative); Urine Color Yellow; Urine Glucose Negative (Negative); Urine Ketones 2+ (Negative); Urine Nitrite Negative (Negative); Urine Protein 1+(30 mg/dL) (Negative); Urine Urobilinogen Negative (Negative)
[2020-06-30 12:25] LABS: Hepatitis C Antibody Negative (Negative)
[2020-06-30 12:43] LABS: Urine Bacteria Absent (Absent); Urine Red Blood Cell 1+(3-5/hpf) (Absent); Urine Squamous Epithelial Cell Present (Absent); Urine White Blood Cell Trace(0-5/hpf) (Absent)
[2020-06-30] MEDS ORDERED: Prochlorperazine 5 mg/ml 2 ml VIAL (10 mg) IV ONE (13:01)
[2020-06-30] MEDS ORDERED: Ondansetron 4 mg VIAL 2 MG/ML 2 ml VIAL IV PRN (14:21)
[2020-06-30] MEDS ORDERED: NS 0.9% 1000 ml BAG 1,000 ML IV SCH (14:30)
[2020-06-30 14:42] LABS: Urine Specific Gravity > 1.060 (1.002-1.030)
[2020-06-30 17:06] LABS: Magnesium 1.6 mg/dL (1.9-2.7)
[2020-06-30] MEDS: KCL 20 MEQ/100 ML IVPREMIX 20 MEQ/100 ML BAG IV SCH (17:20)
[2020-06-30 17:50] LABS: TSH Ultra Thyroid Stim Horm 7.1 mcIU/mL (0.34-5.60)
[2020-06-30] MEDS ORDERED: Magnesium Sulfate 2 gm BAG 2 GM/50 ML BAG IVPB ONE (18:16)
[2020-06-30] MEDS: Heparin 5000 UNITS/ML 1 mL VIAL SUBCUT SCH (22:32)
[2020-07-01] MEDS: KCL 20 MEQ/100 ML IVPREMIX 20 MEQ/100 ML BAG IV SCH ×3 (00:35→02:58)
[2020-07-01 05:14] LABS: ABS Basophils 0.1 10^3/ul (0-0.2); ABS Eosinophils 0.1 10^3/ul (0-0.6); ABS Lymphocytes 2.2 10^3/ul (1.0-4.8); ABS Monocytes 0.6 10^3/ul (0-0.8); ABS Neutrophils 5.1 10^3/ul (1.5-7.7); Hematocrit 42 % (35-47); Hemoglobin 13.7 g/dL (12.0-16.0); Lymphocyte % 27.4 %; Mean Corpuscular HGB Conc 33 g/dL (31-36); Mean Corpuscular Hemoglobin 29 pg (27-31); Mean Corpuscular Volume 88 fL (80-97); Mean Platelet Volume 8.5 fL (7.4-10.4); Platelet Count 236 10^3/uL (150-450); Red Blood Count 4.73 10^6 /uL (3.70-4.87); Red Cell Distribution Width 16 % (10-15); White Blood Count 8.1 10^3/uL (3.5-10.8)
[2020-07-01] MEDS: Heparin 5000 UNITS/ML 1 mL VIAL SUBCUT SCH ×2 (05:25→15:45)
[2020-07-01 05:27] LABS: BUN/Creatinine Ratio 8.3 (8-20); Calcium 8.4 mg/dL (8.6-10.3); EGFR African American 121.4 (>60); EGFR Non-African American 100.3 (>60); Magnesium 2.4 mg/dL (1.9-2.7); Potassium 3.9 mmol/L (3.5-5.0)
[2020-07-01 17:49] VITALS: BP 128/60
== END 2020-07-01 17:30 | disposition home or self-care (01) ==
LOC: MED 08:54 → ED 08:54 → MED 16:25
PROVIDERS: ADMIT Internal Medicine; ATTEND Internal Medicine

== ENCOUNTER 2020-07-06 12:32 | Observation (INO) ==
[2020-07-06 13:24] LABS: ABS Lymphocytes 1.2 10^3/ul (1.0-4.8); ABS Monocytes 0.5 10^3/ul (0-0.8); ABS Neutrophils 4.4 10^3/ul (1.5-7.7); Eosinophil % 0.1 %; Hematocrit 40 % (35-47); Hemoglobin 13.5 g/dL (12.0-16.0); Lymphocyte % 19.3 %; Mean Corpuscular HGB Conc 34 g/dL (31-36); Mean Corpuscular Hemoglobin 29 pg (27-31); Mean Corpuscular Volume 87 fL (80-97); Mean Platelet Volume 8.5 fL (7.4-10.4); Platelet Count 244 10^3/uL (150-450); Red Cell Distribution Width 17 % (10-15); White Blood Count 6.2 10^3/uL (3.5-10.8)
[2020-07-06 13:49] LABS: ALT 23 U/L (7-52); AST 32 U/L (13-39); Albumin 3.9 g/dL (3.2-5.2); Albumin/Globulin Ratio 1.4 (1-3); Alkaline Phosphatase 70 U/L (34-104); Anion Gap 18 mmol/L (2-11); Blood Urea Nitrogen 5 mg/dL (6-24); CO2 Carbon Dioxide 15 mmol/L (22-32); Calcium 9.2 mg/dL (8.6-10.3); Chloride 107 mmol/L (101-111); EGFR African American 101.6 (>60); Globulin 2.8 g/dL (2-4); Glucose 82 mg/dL (70-100); Potassium 3.3 mmol/L (3.5-5.0); Sodium 140 mmol/L (135-145); Total Protein 6.7 g/dL (6.4-8.9)
[2020-07-06] MEDS ORDERED: NS 0.9% 1000 ml BAG 1,000 ML IV ONE (13:53)
[2020-07-06 14:37] LABS: Salicylate < 2.50 mg/dL (<30)
[2020-07-06 15:36] LABS: Urine Appearance Cloudy; Urine Bilirubin Negative (Negative); Urine Blood Negative (Negative); Urine Color Yellow; Urine Glucose Negative (Negative); Urine Ketones 2+ (Negative); Urine Nitrite Negative (Negative); Urine Protein 1+(30 mg/dL) (Negative); Urine Urobilinogen Negative (Negative)
[2020-07-06 15:41] LABS: Urine Bacteria Absent (Absent); Urine Red Blood Cell Trace(0-2/hpf) (Absent); Urine Squamous Epithelial Cell Present (Absent); Urine White Blood Cell Trace(0-5/hpf) (Absent)
[2020-07-06] MEDS ORDERED: Potassium Chlor 20 meq TAB.ER PO ONE (16:22)
[2020-07-06 16:47] LABS: Magnesium 1.6 mg/dL (1.9-2.7)
[2020-07-06 17:32] LABS: TSH Ultra Thyroid Stim Horm 0.42 mcIU/mL (0.34-5.60)
[2020-07-06] MEDS: Lactated Ringers 1000 ml BAG 1,000 ML IV SCH (18:23)
[2020-07-06] MEDS: Enoxaparin 40 MG/0.4 ML SYR SUBCUT SCH (18:31)
[2020-07-07 07:52] LABS: ABS Basophils 0.1 10^3/ul (0-0.2); ABS Eosinophils 0.1 10^3/ul (0-0.6); ABS Lymphocytes 2.6 10^3/ul (1.0-4.8); ABS Monocytes 0.7 10^3/ul (0-0.8); ABS Neutrophils 2.6 10^3/ul (1.5-7.7); Eosinophil % 1.7 %; Hematocrit 36 % (35-47); Hemoglobin 12.3 g/dL (12.0-16.0); Lymphocyte % 43.1 %; Mean Corpuscular HGB Conc 35 g/dL (31-36); Mean Corpuscular Hemoglobin 30 pg (27-31); Mean Corpuscular Volume 87 fL (80-97); Mean Platelet Volume 9.1 fL (7.4-10.4); Nucleated Red Blood Cells % 0.2; Platelet Count 197 10^3/uL (150-450); Red Blood Count 4.13 10^6 /uL (3.70-4.87); Red Cell Distribution Width 17 % (10-15)
[2020-07-07 08:12] LABS: Calcium 8.4 mg/dL (8.6-10.3); EGFR African American 114.8 (>60); EGFR Non-African American 94.8 (>60); Potassium 3.2 mmol/L (3.5-5.0)
[2020-07-07] MEDS: Lactated Ringers 1000 ml BAG 1,000 ML IV SCH (08:22)
[2020-07-07] MEDS: Potassium Chlor 20 meq TAB.ER PO SCH ×3 (10:38→11:43)
[2020-07-07] MEDS: Enoxaparin 40 MG/0.4 ML SYR SUBCUT SCH (16:23)
[2020-07-08 08:30] LABS: Calcium 8.4 mg/dL (8.6-10.3); EGFR African American 128.8 (>60); EGFR Non-African American 106.4 (>60); Potassium 3.5 mmol/L (3.5-5.0)
[2020-07-08] MEDS ORDERED: Potassium Chlor 20 meq TAB.ER PO ONE (08:35)
[2020-07-08 12:26] VITALS: BP 121/67
== END 2020-07-08 12:00 ==
LOC: ED 12:32 → MEDTELE 12:32
PROVIDERS: ADMIT Hospitalist; ATTEND Internal Medicine